=== PATIENT | male | born 1965 | race Hispanic/Latino ===

== ENCOUNTER 2021-06-25 16:02 | Inpatient (IN) | payer OTHER ==
[~2021-06-25] VITALS: Ht 165.1 cm; Wt 87.3 kg
[2021-06-25 16:49] LABS: BASOPHILS % (AUTO) 0.4 % (0.0-5.0); EOSINOPHILS % (AUTO) 0.7 % (0.0-8.0); HEMATOCRIT 39.2 % (42-54); LYMPHOCYTES % (AUTO) 11.8 % (21.0-51.0); MEAN CORPUSCULAR HEMOGLOBIN 30.1 pg (27.0-33.0); MEAN CORPUSCULAR HGB CONC 34.4 g/dL (32.0-36.0); MEAN CORPUSCULAR VOLUME 87.5 fL (79-99); MONOCYTES % (AUTO) 9.6 % (3.0-13.0); NEUTROPHILS % (AUTO) 76.7 % (40.0-77.0); PLATELET COUNT (AUTO) 226 K/uL (130-400); RED BLOOD CELL COUNT(AUTO) 4.48 MIL/uL (4.50-6.20); RED CELL DISTRIBUTION WIDTH 12.5 % (11.0-15.5); WHITE BLOOD COUNT (AUTO) 13.6 K/uL (4.8-10.8)
[2021-06-25 17:03] LABS: ALBUMIN 2.9 g/dL (3.5-5.0); BILIRUBIN,TOTAL 0.9 mg/dL (0.2-1.0); CREATININE 1.3 mg/dL (0.5-1.5); POTASSIUM 3.7 mmol/L (3.5-5.1); TOTAL PROTEIN, SERUM 7.9 g/dL (6.0-8.3)
[2021-06-25] MEDS ORDERED: INSULIN HUMULIN R 100 UNIT/ML 3ML IV ONE (17:30)
[2021-06-25] MEDS ORDERED: CLINDAMYCIN IVPB 600MG/50ML 50 ML IV SCH (17:30)
[2021-06-25] MEDS ORDERED: 0.9%NACL 1000ML 1,000 ML IV ONE (17:30)
[2021-06-25] MEDS ORDERED: 0.9%NACL 1000ML 1,845 ML IV ONE (20:00)
[2021-06-25] MEDS ORDERED: MORPHINE 4 MG SYG IV PRN (20:00)
[2021-06-25] MEDS ORDERED: MORPHINE 2 MG SYG IV PRN (20:00)
[2021-06-25] MEDS ORDERED: ONDANSETRON 4MG INJ IV PRN (20:00)
[2021-06-25] MEDS ORDERED: CEFTRIAXONE 2GM VIAL IVP SCH (20:00)
[2021-06-25] MEDS ORDERED: VANCOMYCIN PROTOCOL PER PHARMACY IV PRN (20:00)
[2021-06-25 20:10] LABS: APPEARANCE,URINE Clear (CLEAR); BILIRUBIN,URINE Negative (NEGATIVE); COLOR,URINE Yellow (YELLOW); GLUCOSE, URINE (UA) >=1000 mg/dL (NEGATIVE); KETONES,URINE Negative (NEGATIVE); LEUKOCYTE ESTERASE ,URINE Negative (NEGATIVE); NITRATE,URINE Negative (NEGATIVE); OCCULT BLOOD,URINE Negative (NEGATIVE); PROTEIN,URINE Trace mg/dL (NEGATIVE)
[2021-06-25] MEDS ORDERED: FAMOTIDINE 20MG TAB ONE (20:28)
[2021-06-25] MEDS ORDERED: CEFTRIAXONE 1G VIAL ONE ×2 (20:28→21:13)
[2021-06-25] MEDS ORDERED: 0.9%NACL 1000ML 2,000 ML IV ONE (20:28)
[2021-06-25 20:33] LABS: BACTERIA,URINE None Seen /HPF (None Seen); RBC,URINE 0-1 /HPF (0-1); SQUAMOUS EPITHELIAL CELL,UR Rare /HPF (0-2); WBC,URINE None Seen /HPF (0-1); YEAST,URINE BUDDING None Seen /HPF (None Seen)
[2021-06-25] MEDS: FAMOTIDINE 20MG TAB PO SCH (21:00)
[2021-06-25] MEDS: INSULIN HUMULIN R 100 UNIT/ML 3ML SQ SCH (21:00)
[2021-06-25] MEDS ORDERED: COMPOUND IV REFRIGERATED 1 EACH IVSOLN MISC PRN (21:00)
[2021-06-25] MEDS: VANCOMYCIN 1.25GM/NS 250ML IVPB SCH ×2 (21:31)
[2021-06-26] VITALS (7 sets, daily range): BP systolic 115–137; BP diastolic 67–85
[2021-06-26] MEDS ORDERED: INSU100I21 SQ (00:30)
[2021-06-26] MEDS ORDERED: ATOR40TA71 PO (00:30)
[2021-06-26] MEDS ORDERED: SITA100T12 PO (00:30)
[2021-06-26] MEDS ORDERED: INSU100I3 SQ (00:30)
[2021-06-26] MEDS ORDERED: METO-408 PO (00:30)
[2021-06-26 04:24] LABS: BASOPHILS % (AUTO) 0.3 % (0.0-5.0); EOSINOPHILS % (AUTO) 0.7 % (0.0-8.0); MEAN CORPUSCULAR HEMOGLOBIN 29.3 pg (27.0-33.0); MEAN CORPUSCULAR HGB CONC 33.2 g/dL (32.0-36.0); MEAN CORPUSCULAR VOLUME 88.1 fL (79-99); MONOCYTES % (AUTO) 8.6 % (3.0-13.0); NEUTROPHILS % (AUTO) 77.8 % (40.0-77.0); PLATELET COUNT (AUTO) 202 K/uL (130-400); RED BLOOD CELL COUNT(AUTO) 3.86 MIL/uL (4.50-6.20); RED CELL DISTRIBUTION WIDTH 12.4 % (11.0-15.5); WHITE BLOOD COUNT (AUTO) 12.7 K/uL (4.8-10.8)
[2021-06-26 04:32] LABS: INR 1.07 (0.85-1.15); PROTHROMBIN TIME 11.6 SEC (9.6-11.6)
[2021-06-26 04:34] LABS: PARTIAL THROMBOPLASTIN TIME 35.3 SEC (26.3-35.5)
[2021-06-26 04:41] LABS: HEMOGLOBIN A1C 10.8 % (4.0-6.0)
[2021-06-26 04:42] LABS: CREATININE 0.8 mg/dL (0.5-1.5); MAGNESIUM 1.4 mg/dL (1.80-2.40); PHOSPHORUS 2.3 mg/dL (2.5-4.9); POTASSIUM 3.5 mmol/L (3.5-5.1)
[2021-06-26] MEDS ORDERED: KCL 20 MEQ ERTAB PO ONE (06:00)
[2021-06-26] MEDS: MAGNESIUM 2GM PREMIX 50ML 50 ML IV SCH (06:25)
[2021-06-26] MEDS: INSULIN HUMULIN R 100 UNIT/ML 3ML SQ SCH ×4 (06:27→20:42)
[2021-06-26] MEDS: ENOXAPARIN SODIUM 40 MG/0.4 ML SYRINGE SQ SCH (08:54)
[2021-06-26] MEDS: FAMOTIDINE 20MG TAB PO SCH ×2 (08:54→20:41)
[2021-06-26] MEDS: VANCOMYCIN 1.25GM/NS 250ML IVPB SCH ×4 (10:33→20:41)
[2021-06-26] MEDS ORDERED: IOHEXOL 350 MG/ML 100ML INFUS..BTL IV ONE (12:51)
[2021-06-26] MEDS ORDERED: IOHEXOL-350 75 ML VIAL IV ONE (13:02)
[2021-06-26] MEDS: INSULIN GLARGINE 100 UNITS/ML 10 ML VIAL SQ SCH (20:44)
[2021-06-26] MEDS: CEFEPIME HCL 1 GM VIAL IVP SCH (22:20)
[2021-06-27 03:51] VITALS: BP 127/66
[2021-06-27] MEDS: INSULIN HUMULIN R 100 UNIT/ML 3ML SQ SCH ×4 (05:31→21:16)
[2021-06-27] MEDS: CEFEPIME HCL 1 GM VIAL IVP SCH ×3 (05:31→22:37)
[2021-06-27 07:53] LABS: HEMATOCRIT 35.1 % (42-54); MEAN CORPUSCULAR HEMOGLOBIN 29.1 pg (27.0-33.0); RED BLOOD CELL COUNT(AUTO) 3.99 MIL/uL (4.50-6.20); RED CELL DISTRIBUTION WIDTH 12.2 % (11.0-15.5); WHITE BLOOD COUNT (AUTO) 12.8 K/uL (4.8-10.8)
[2021-06-27 08:00] VITALS: BP 121/73
[2021-06-27] MEDS: FAMOTIDINE 20MG TAB PO SCH ×2 (08:30→21:11)
[2021-06-27] MEDS: ENOXAPARIN SODIUM 40 MG/0.4 ML SYRINGE SQ SCH (08:30)
[2021-06-27 08:31] LABS: CREATININE 0.7 mg/dL (0.5-1.5); MAGNESIUM 1.9 mg/dL (1.80-2.40); POTASSIUM 3.7 mmol/L (3.5-5.1)
[2021-06-27] MEDS: VANCOMYCIN 1.5 GM/250 ML BAG 250 ML IV SCH ×2 (09:11→21:11)
[2021-06-27 12:00] VITALS: BP 128/76
[2021-06-27] MEDS: ACETAMINOPHEN 325 MG TAB PO PRN (14:26)
[2021-06-27 16:00] VITALS: BP 128/76
[2021-06-27] MEDS ORDERED: LINAGLIPTIN 5 MG TABLET PO SCH (17:00)
[2021-06-27 19:39] VITALS: BP 101/70
[2021-06-27] MEDS ORDERED: 0.9%NACL 10ML VIAL ONE (20:11)
[2021-06-27] MEDS: ATORVASTATIN 40 MG TABLET PO SCH (21:11)
[2021-06-27] MEDS: INSULIN GLARGINE 100 UNITS/ML 10 ML VIAL SQ SCH (21:15)
[2021-06-27] MEDS: MORPHINE 2 MG SYG IV PRN (22:31)
[2021-06-27 23:32] VITALS: BP 124/72
[2021-06-28 03:45] VITALS: BP 129/70
[2021-06-28 05:27] LABS: BASOPHILS % (AUTO) 0.3 % (0.0-5.0); EOSINOPHILS % (AUTO) 1.1 % (0.0-8.0); HEMATOCRIT 34.6 % (42-54); LYMPHOCYTES % (AUTO) 14.3 % (21.0-51.0); MEAN CORPUSCULAR HEMOGLOBIN 29.8 pg (27.0-33.0); MEAN CORPUSCULAR HGB CONC 33.8 g/dL (32.0-36.0); MEAN CORPUSCULAR VOLUME 88.3 fL (79-99); MONOCYTES % (AUTO) 7.4 % (3.0-13.0); NEUTROPHILS % (AUTO) 76.1 % (40.0-77.0); PLATELET COUNT (AUTO) 238 K/uL (130-400); RED BLOOD CELL COUNT(AUTO) 3.92 MIL/uL (4.50-6.20); RED CELL DISTRIBUTION WIDTH 12.3 % (11.0-15.5); WHITE BLOOD COUNT (AUTO) 12.8 K/uL (4.8-10.8)
[2021-06-28 05:51] LABS: BILIRUBIN,TOTAL 0.4 mg/dL (0.2-1.0); CREATININE 0.7 mg/dL (0.5-1.5); CRP QUANTITATIVE 151.7 mg/L (0.00-9.0); POTASSIUM 3.4 mmol/L (3.5-5.1); TOTAL PROTEIN, SERUM 6.9 g/dL (6.0-8.3)
[2021-06-28] MEDS: CEFEPIME HCL 1 GM VIAL IVP SCH ×3 (06:16→21:00)
[2021-06-28] MEDS: INSULIN HUMULIN R 100 UNIT/ML 3ML SQ SCH ×4 (06:17→21:02)
[2021-06-28] MEDS: ACETAMINOPHEN 325 MG TAB PO PRN ×2 (06:19→20:59)
[2021-06-28 06:45] LABS: ERYTHROCYTE SEDIMENTATION RATE 134 MM/HR (0-20)
[2021-06-28 08:00] VITALS: BP 130/76
[2021-06-28] MEDS: VANCOMYCIN 1.5 GM/250 ML BAG 250 ML IV SCH ×2 (09:12→20:59)
[2021-06-28] MEDS: METOPROLOL SUCCINATE 50 MG TAB.SR.24H PO SCH (09:13)
[2021-06-28] MEDS: LINAGLIPTIN 5 MG TABLET PO SCH (09:13)
[2021-06-28] MEDS: FAMOTIDINE 20MG TAB PO SCH ×2 (09:13→20:59)
[2021-06-28] MEDS: ENOXAPARIN SODIUM 40 MG/0.4 ML SYRINGE SQ SCH (09:13)
[2021-06-28] MEDS: MORPHINE 2 MG SYG IV PRN (09:15)
[2021-06-28 12:00] VITALS: BP 118/78
[2021-06-28] MEDS ORDERED: POTASSIUM CHLORIDE 10% ELIXIR 20 MEQ/15 ML UDCUP PO PRN (14:00)
[2021-06-28] MEDS ORDERED: POTASSIUM CHLORIDE 20MEQ/100ML 100 ML IV PRN (14:00)
[2021-06-28] MEDS ORDERED: KCL 20 MEQ ERTAB PO PRN (14:00)
[2021-06-28] MEDS ORDERED: LIDOCAINE HCL-MPF 1% 2ML VIAL IJ PRN (14:00)
[2021-06-28] MEDS: MAGNESIUM 2GM PREMIX 50ML 50 ML IV SCH (14:21)
[2021-06-28 16:00] VITALS: BP 117/69
[2021-06-28 19:39] VITALS: BP 132/68
[2021-06-28] MEDS: SOLU-MEDROL 40MG VIAL IVP SCH (20:59)
[2021-06-28] MEDS: ATORVASTATIN 40 MG TABLET PO SCH (20:59)
[2021-06-28] MEDS: INSULIN GLARGINE 100 UNITS/ML 10 ML VIAL SQ SCH (21:05)
[2021-06-28 23:24] VITALS: BP 107/63
[2021-06-29 03:00] VITALS: BP 104/60
[2021-06-29] MEDS: CEFEPIME HCL 1 GM VIAL IVP SCH (05:20)
[2021-06-29] MEDS: INSULIN HUMULIN R 100 UNIT/ML 3ML SQ SCH ×3 (06:49→16:23)
[2021-06-29 08:00] VITALS: BP 120/65
[2021-06-29] MEDS ORDERED: COLCHICINE 0.6 MG TABLET PO SCH (08:00)
[2021-06-29 08:06] LABS: BASOPHILS % (AUTO) 0.3 % (0.0-5.0); HEMATOCRIT 35.4 % (42-54); LYMPHOCYTES % (AUTO) 5.5 % (21.0-51.0); MEAN CORPUSCULAR HEMOGLOBIN 29.5 pg (27.0-33.0); MEAN CORPUSCULAR HGB CONC 33.9 g/dL (32.0-36.0); MONOCYTES % (AUTO) 0.8 % (3.0-13.0); NEUTROPHILS % (AUTO) 92.6 % (40.0-77.0); PLATELET COUNT (AUTO) 284 K/uL (130-400); RED BLOOD CELL COUNT(AUTO) 4.07 MIL/uL (4.50-6.20); WHITE BLOOD COUNT (AUTO) 14.3 K/uL (4.8-10.8)
[2021-06-29 08:11] LABS: RETICULOCYTE % (AUTO) 0.75 % (0.42-2.23)
[2021-06-29 08:23] LABS: CREATININE 0.9 mg/dL (0.5-1.5); MAGNESIUM 2.2 mg/dL (1.80-2.40)
[2021-06-29] MEDS: VANCOMYCIN 1.5 GM/250 ML BAG 250 ML IV SCH ×2 (08:55→21:20)
[2021-06-29] MEDS: SOLU-MEDROL 40MG VIAL IVP SCH (08:56)
[2021-06-29] MEDS: LINAGLIPTIN 5 MG TABLET PO SCH (08:56)
[2021-06-29] MEDS: FAMOTIDINE 20MG TAB PO SCH ×2 (08:56→21:21)
[2021-06-29] MEDS: METOPROLOL SUCCINATE 50 MG TAB.SR.24H PO SCH (08:56)
[2021-06-29] MEDS: ENOXAPARIN SODIUM 40 MG/0.4 ML SYRINGE SQ SCH (08:56)
[2021-06-29 09:08] LABS: % IRON SATURATION 16.1 % (30-44)
[2021-06-29 12:00] VITALS: BP 118/72
[2021-06-29] MEDS: COLCHICINE 0.6 MG TABLET PO SCH (12:50)
[2021-06-29 15:46] VITALS: BP 118/69
[2021-06-29] MEDS: ACETAMINOPHEN 325 MG TAB PO PRN (16:13)
[2021-06-29 19:24] VITALS: BP 126/78
[2021-06-29] MEDS: ATORVASTATIN 40 MG TABLET PO SCH (21:21)
[2021-06-29] MEDS: MUPIROCIN OINTMENT 22 GM TUBE TP SCH (21:22)
[2021-06-29] MEDS: INSULIN GLARGINE 100 UNITS/ML 10 ML VIAL SQ SCH (21:29)
[2021-06-29] MEDS: INSULIN LISPRO 100 UNIT/ML 3ML SQ SCH (22:04)
[2021-06-29 23:16] VITALS: BP 113/70
[2021-06-30 03:22] VITALS: BP 128/77
[2021-06-30 03:41] LABS: PROTEIN,URINE RANDOM 28.3 mg/dL (0-11.9)
[2021-06-30 04:25] LABS: BASOPHILS % (AUTO) 0.3 % (0.0-5.0); EOSINOPHILS % (AUTO) 0.3 % (0.0-8.0); LYMPHOCYTES % (AUTO) 13.8 % (21.0-51.0); MEAN CORPUSCULAR HEMOGLOBIN 30.2 pg (27.0-33.0); MEAN CORPUSCULAR HGB CONC 34.3 g/dL (32.0-36.0); MEAN CORPUSCULAR VOLUME 87.9 fL (79-99); MONOCYTES % (AUTO) 4.7 % (3.0-13.0); NEUTROPHILS % (AUTO) 79.9 % (40.0-77.0); PLATELET COUNT (AUTO) 328 K/uL (130-400); RED BLOOD CELL COUNT(AUTO) 3.98 MIL/uL (4.50-6.20); WHITE BLOOD COUNT (AUTO) 16.4 K/uL (4.8-10.8)
[2021-06-30 05:02] LABS: CREATININE 0.9 mg/dL (0.5-1.5); CRP QUANTITATIVE 65.1 mg/L (0.00-9.0)
[2021-06-30 05:46] LABS: ERYTHROCYTE SEDIMENTATION RATE 103 MM/HR (0-20)
[2021-06-30 08:15] VITALS: BP 126/73
[2021-06-30] MEDS: LINAGLIPTIN 5 MG TABLET PO SCH (08:39)
[2021-06-30] MEDS: FAMOTIDINE 20MG TAB PO SCH ×2 (08:39→20:46)
[2021-06-30] MEDS: VANCOMYCIN 1.5 GM/250 ML BAG 250 ML IV SCH ×2 (08:39→20:40)
[2021-06-30] MEDS: MUPIROCIN OINTMENT 22 GM TUBE TP SCH ×2 (08:39→21:01)
[2021-06-30] MEDS: ENOXAPARIN SODIUM 40 MG/0.4 ML SYRINGE SQ SCH (08:39)
[2021-06-30] MEDS: LISINOPRIL 5 MG TABLET PO SCH (08:40)
[2021-06-30] MEDS: METOPROLOL SUCCINATE 50 MG TAB.SR.24H PO SCH (08:40)
[2021-06-30] MEDS: INSULIN LISPRO 100 UNIT/ML 3ML SQ SCH ×7 (08:43→21:04)
[2021-06-30] MEDS: COLCHICINE 0.6 MG TABLET PO SCH (08:46)
[2021-06-30] MEDS ORDERED: COLCHICINE 0.6 MG TABLET PO SCH (10:00)
[2021-06-30] MEDS ORDERED: ASPIRIN 325MG EC TAB PO SCH (10:30)
[2021-06-30] MEDS ORDERED: IOHEXOL 350 MG/ML 100ML INFUS..BTL IV ONE (10:42)
[2021-06-30] MEDS ORDERED: IOHEXOL-350 50ML VIAL IV ONE (10:42)
[2021-06-30] MEDS ORDERED: HEPARIN 25,000 UNITS/250ML D5W 250 ML IV SCH (11:00)
[2021-06-30 12:25] VITALS: BP 123/75
[2021-06-30] MEDS: MORPHINE 2 MG SYG IV PRN (15:58)
[2021-06-30 16:04] VITALS: BP 120/59
[2021-06-30 19:12] VITALS: BP 108/73
[2021-06-30] MEDS: ATORVASTATIN 40 MG TABLET PO SCH (20:46)
[2021-06-30] MEDS: INSULIN GLARGINE 100 UNITS/ML 10 ML VIAL SQ SCH (21:03)
[2021-07-01 00:12] VITALS: BP 104/65
[2021-07-01 03:12] VITALS: BP_SYST 124; BP_DIAS 67; BP_DIAS 72
[2021-07-01 08:35] VITALS: BP 120/69
[2021-07-01] MEDS ORDERED: COLCHICINE 0.6 MG TABLET PO SCH (09:00)
[2021-07-01] MEDS ORDERED: ASPIRIN 81MG CHEW TAB PO SCH (09:00)
[2021-07-01] MEDS ORDERED: PREDNISONE 10 MG TABLET PO SCH (09:00)
[2021-07-01] MEDS: METOPROLOL SUCCINATE 50 MG TAB.SR.24H PO SCH (09:00)
[2021-07-01] MEDS: LINAGLIPTIN 5 MG TABLET PO SCH (09:01)
[2021-07-01] MEDS: LISINOPRIL 5 MG TABLET PO SCH (09:01)
[2021-07-01] MEDS: FAMOTIDINE 20MG TAB PO SCH (09:02)
[2021-07-01] MEDS: ACETAMINOPHEN 325 MG TAB PO PRN (09:03)
[2021-07-01] MEDS: ENOXAPARIN SODIUM 40 MG/0.4 ML SYRINGE SQ SCH (09:03)
[2021-07-01] MEDS: MUPIROCIN OINTMENT 22 GM TUBE TP SCH (09:03)
[2021-07-01] MEDS: VANCOMYCIN 1.5 GM/250 ML BAG 250 ML IV SCH (09:06)
[2021-07-01] MEDS: INSULIN LISPRO 100 UNIT/ML 3ML SQ SCH ×4 (09:19→12:48)
[2021-07-01 12:00] VITALS: BP 149/82
[2021-07-01 13:58] LABS: BASOPHILS % (AUTO) 0.4 % (0.0-5.0); EOSINOPHILS % (AUTO) 0.6 % (0.0-8.0); HEMATOCRIT 36.4 % (42-54); MEAN CORPUSCULAR HEMOGLOBIN 29.5 pg (27.0-33.0); MEAN CORPUSCULAR HGB CONC 33.2 g/dL (32.0-36.0); MEAN CORPUSCULAR VOLUME 88.8 fL (79-99); MONOCYTES % (AUTO) 5.3 % (3.0-13.0); NEUTROPHILS % (AUTO) 76.9 % (40.0-77.0); PLATELET COUNT (AUTO) 376 K/uL (130-400); RED CELL DISTRIBUTION WIDTH 12.2 % (11.0-15.5); WHITE BLOOD COUNT (AUTO) 12.2 K/uL (4.8-10.8)
[2021-07-01] MEDS ORDERED: ATOR40TA71 PO (14:01)
[2021-07-01] MEDS ORDERED: PRED10B PO (14:01)
[2021-07-01] MEDS ORDERED: INSU100I3 SQ (14:01)
[2021-07-01] MEDS ORDERED: MUPI22OI2 TP (14:01)
[2021-07-01] MEDS ORDERED: LISI5TAB21 PO (14:01)
[2021-07-01] MEDS ORDERED: ASPI-1005 PO (14:01)
[2021-07-01] MEDS ORDERED: LIRA0.6P2 SQ (14:01)
[2021-07-01] MEDS ORDERED: INSU100I21 SQ (14:01)
[2021-07-01] MEDS ORDERED: COLC0.6T73 PO (14:01)
[2021-07-01 14:06] LABS: CREATININE 0.9 mg/dL (0.5-1.5); CRP QUANTITATIVE 37.4 mg/L (0.00-9.0); POTASSIUM 3.6 mmol/L (3.5-5.1)
[2021-07-01] MEDS ORDERED: CHLO118L4 TP (14:11)
[2021-07-01] MEDS ORDERED: LINE600T11 PO (14:11)
[2021-07-01] MEDS ORDERED: CHLO473M2 MM (14:11)
[2021-07-01 15:10] LABS: ERYTHROCYTE SEDIMENTATION RATE 121 MM/HR (0-20)
[2021-07-01] MEDS ORDERED: INSULIN LISPRO 100 UNIT/ML 3ML SQ SCH (17:00)
[2021-07-01] MEDS ORDERED: MUPIROCIN OINTMENT 22 GM TUBE TP SCH (21:00)
[2021-07-02] MEDS ORDERED: LISINOPRIL 5 MG TABLET PO SCH (09:00)
== END 2021-07-01 15:34 | disposition home or self-care (01) | DRG 872 ==
LOC: EDH 16:02 → EDHIP 16:03 → 2AH 23:52
PROVIDERS: ADMIT Internal Medicine; ATTEND Internal Medicine
DX: A41.9 Sepsis, unspecified organism (principal); D68.59 Other primary thrombophilia; L02.811 Cutaneous abscess of head [any part, except face]; L03.116 Cellulitis of left lower limb; E78.5 Hyperlipidemia, unspecified; I10 Essential (primary) hypertension; E11.65 Type 2 diabetes mellitus with hyperglycemia; M77.32 Calcaneal spur, left foot; Z20.822 Contact with and (suspected) exposure to COVID-19; E66.01 Morbid (severe) obesity due to excess calories; E86.0 Dehydration; M10.9 Gout, unspecified; Z68.32 Body mass index [BMI] 32.0-32.9, adult
CPT/HCPCS: 36415; 70450; 73630; 73702; 75635; 80048; 80053; 80202; 81001; 82043; 82570; 82607; 82728; 82746; 82948; 83036; 83540; 83550; 83605; 83735; 83930; 83935; 84100; 84145; 84156; 84550; 85025; 85027; 85045; 85378; 85610; 85651; 85730; 86140; 87040; 87070; 87077; 87186; 87635; 87641; 93005; 93926; 93971; G0378; J0692; J0696; J1650; J1815; J2920; J3370; J3475; J3480; J3490; J7030; J7050; J7512; Q9967